=== PATIENT | male | born 1960 | race Caucasian/White ===

== ENCOUNTER → 2017-07-05 14:32 | Outpatient (CLI) | payer OTHER, SELFPAY | PROVIDERS: PCP Internal Medicine; Visit Provider Internal Medicine | DX: J11.1 Influenza due to unidentified influenza virus with other respiratory manifestations (principal) | CPT/HCPCS: 87275; 87276 ==

== ENCOUNTER → 2017-07-26 13:04 | Outpatient (CLI) | payer OTHER, SELFPAY ==
--- NOTE | 2017-07-26 13:13 | FL_ITS ---
FL cystogram non-voiding CLINICAL INDICATION: Evaluate for bladder leak following surgery ITS.REASON: F/U SURGERY ORDERING PHYSICIAN: Tevin Tapia MD PATIENT AGE: 56 years COMPARISON: None FINDINGS: Cystografin was instilled into the urinary bladder. Approximately 125 mL was dripped in. The patient reported severe discomfort therefore no further contrast was instilled. Multiple images are obtained showing a contracted appearing urinary bladder with minimal lobularity of the contour along the left superior aspect and could represent an early diverticulum. No filling defects are evident. No evidence of contrast extravasation. Post void exam is unremarkable. IMPRESSION: 1. No evidence of urinary bladder leak. 2. Contracted appearing urinary bladder
== END ==
PROVIDERS: Family Provider Internal Medicine; PCP Internal Medicine; Visit Provider Urology
DX: Z98.890 Other specified postprocedural states (principal)
CPT/HCPCS: 74430; Q9966

== ENCOUNTER → 2017-08-16 16:00 | Outpatient (CLI) | payer OTHER, SELFPAY ==
[2017-08-16 19:27] LABS: Prostate Specific Ag, Diagnost 0 ng/mL (0.0-4.0)
== END ==
PROVIDERS: Visit Provider Urology
DX: C61 Malignant neoplasm of prostate (principal)
CPT/HCPCS: 36415; 84153

== ENCOUNTER → 2017-10-18 15:55 | Outpatient (CLI) | payer OTHER, SELFPAY ==
[2017-10-18 20:30] LABS: Prostate Specific Ag, Diagnost 0 ng/mL (0.0-4.0)
== END ==
PROVIDERS: Visit Provider Urology
DX: C61 Malignant neoplasm of prostate (principal)
CPT/HCPCS: 36415; 84153

== ENCOUNTER → 2018-01-17 16:57 | Outpatient (CLI) | payer OTHER, SELFPAY | PROVIDERS: Visit Provider Urology | DX: C61 Malignant neoplasm of prostate (principal) ==

== ENCOUNTER → 2018-03-14 15:33 | Outpatient (POV) | payer OTHER, SELFPAY | PROVIDERS: Family Provider Internal Medicine; PCP Internal Medicine; Visit Provider Dermatology | DX: Z00.00 Encounter for general adult medical examination without abnormal findings (principal) ==

== ENCOUNTER → 2018-09-05 15:44 | Outpatient (CLI) | payer OTHER, SELFPAY ==
[2018-09-05 19:32] LABS: Prostate Specific Ag, Diagnost 0 ng/mL (0.0-4.0)
== END ==
PROVIDERS: Visit Provider Urology
DX: C61 Malignant neoplasm of prostate (principal)
CPT/HCPCS: 36415; 84153

== ENCOUNTER → 2018-11-13 10:03 | Outpatient (CLI) | payer OTHER, SELFPAY ==
[2018-11-13 10:28] LABS: Troponin I < 0.02 ng/ml (0.00-0.06)
== END ==
PROVIDERS: Visit Provider Internal Medicine
DX: R06.02 Shortness of breath (principal); J44.9 Chronic obstructive pulmonary disease, unspecified
CPT/HCPCS: 36415; 84484; 93005

== ENCOUNTER → 2018-12-05 15:39 | Outpatient (CLI) | payer OTHER, SELFPAY ==
[2018-12-07 18:21] LABS: PSA, Free 0.02 ng/mL; Prostate Specific Ag <0.1 ng/mL (0.0-4.0)
== END ==
PROVIDERS: Visit Provider Urology
DX: C61 Malignant neoplasm of prostate (principal)
CPT/HCPCS: 36415; 84153; 84154

== ENCOUNTER → 2019-06-04 16:07 | Outpatient (CLI) | payer OTHER, SELFPAY ==
[2019-06-04 19:44] LABS: Prostate Specific Ag, Diagnost 0 ng/mL (0.0-4.0)
== END ==
PROVIDERS: Visit Provider Urology
DX: C61 Malignant neoplasm of prostate (principal)
CPT/HCPCS: 36415; 84153

== ENCOUNTER → 2019-11-20 15:31 | Outpatient (CLI) | payer BC, SELFPAY ==
[2019-11-20 15:45] LABS: Basophils # 0.1 K/mm3 (0-0.2); Basophils % 0.8 % (0.1-2.0); Eosinophils # 0.2 K/mm3 (0.0-0.4); Hematocrit 46.3 % (42.0-52.0); Hemoglobin 15.9 g/dL (14.1-18.0); Lymphocytes # 2.5 K/mm3 (0.7-4.5); Lymphocytes % 30.7 % (10-50); Mean Corpuscular HGB Conc 34.3 g/dL (31.8-35.4); Mean Corpuscular Hemoglobin 32.1 pg (27.0-31.2); Mean Corpuscular Volume 93.8 fl (80-94); Mean Platelet Volume 6.9 fl (7.4-10.4); Monocytes # 0.5 K/mm3 (0.1-1.0); Monocytes % 5.6 % (1.7-9.3); Neutrophils # 4.9 K/mm3 (1.8-7.8); Neutrophils % 59.9 % (37.0-80.0); Platelet Count 309 K/mm3 (142-424); Red Blood Count 4.94 M/mm3 (4.60-6.20); Red Cell Distribution Width 13.3 % (11.5-17.5); White Blood Count 8.1 K/mm3 (4.8-10.8)
[2019-11-20 15:50] LABS: Chloride 101 mmol/L (98-107); Potassium 4.3 mmoL/L (3.5-5.1); Sodium 138 mmol/L (136-145)
[2019-11-20 15:53] LABS: Anion Gap 10.3 mEq/L (5-15); Blood Urea Nitrogen 18 mg/dl (9-20); Carbon Dioxide 31 mmol/L (22.0-30.0); Estimated Glomerular Filt Rate 99 ml/min (>60); GFR (African American) 120 ML/MIN (>60); Glucose 110 mg/dl (74-100)
== END ==
PROVIDERS: Visit Provider Internal Medicine
DX: R42 Dizziness and giddiness; K52.9 Noninfective gastroenteritis and colitis, unspecified
CPT/HCPCS: 36415; 80048; 85025

== ENCOUNTER → 2020-05-27 16:18 | Outpatient (CLI) | payer BC, SELFPAY ==
[2020-05-27 18:38] LABS: Prostate Specific Ag, Diagnost < 0.064 ng/ml (0.0-4.0)
== END ==
PROVIDERS: Visit Provider Urology
DX: C61 Malignant neoplasm of prostate (principal)
CPT/HCPCS: 36415; 84153

== ENCOUNTER → 2020-06-09 12:14 | Outpatient (CLI) | payer BC, SELFPAY ==
[2020-06-09 14:47] LABS: Coronavirus 19 IgG Antibody Negative (Negative); Coronavirus 19 IgM Antibody Negative (Negative)
== END ==
PROVIDERS: PCP Internal Medicine; Visit Provider Internal Medicine
DX: Z11.52 Encounter for screening for COVID-19 (principal); R50.9 Fever, unspecified; R52 Pain, unspecified
CPT/HCPCS: 86328

== ENCOUNTER → 2020-06-10 15:19 | Outpatient (CLI) | payer BC, SELFPAY ==
[2020-06-12 11:42] LABS: Covid-19 Nasal PCR Sendout P&C POSITIVE
== END ==
PROVIDERS: PCP Internal Medicine; Visit Provider Internal Medicine
DX: Z20.822 Contact with and (suspected) exposure to COVID-19 (principal); U07.1 COVID-19; R50.9 Fever, unspecified
CPT/HCPCS: U0004

== ENCOUNTER → 2020-06-23 14:27 | Outpatient (CLI) | payer BC, SELFPAY ==
--- NOTE | 2020-06-23 14:39 | XR_ITS ---
PROCEDURE: XR CHEST 2V CLINICAL HISTORY: COUGH,WHEEZING,THORACIC CHEST PAIN COMPARISON: CR CXR CHEST(2 VIEWS-NOT PORTABLE) from 10/15/2014 FINDINGS: The cardiomediastinal silhouette and pulmonary vascularity are within normal limits. COPD. Patchy density right infrahilar region which could be related to faint area of infiltrate. There is chronic blunting of the right CP angle. Left lung is clear. IMPRESSION: Possible right infrahilar infiltrate with chronic changes Dictated by: Kevin Moss MD 06/23/2020 16:16 Kevin Moss MD in [place] 06/23/2020 16:16
== END ==
PROVIDERS: PCP Internal Medicine; Visit Provider Internal Medicine
DX: R05 Cough (principal); R06.2 Wheezing; R07.89 Other chest pain
CPT/HCPCS: 71046

== ENCOUNTER → 2021-04-14 15:58 | Outpatient (CLI) | payer BC, SELFPAY ==
--- NOTE | 2021-04-14 16:02 | XR_ITS ---
PROCEDURE INFORMATION: Exam: XR Chest Exam date and time: 04/14/2021 4:02 PM Age: 60 years old Clinical indication: Cough; Additional info: Cough, sputum, SOA, copd TECHNIQUE: Imaging protocol: XR of the chest. Views: 2 views. COMPARISON: CR XR CHEST 2V 06/23/2020 2:50 PM FINDINGS: Lungs: Small right basilar opacity is noted. Question some nodularity and possible nodular correlate seen over the heart on the lateral. It measures about 10 mm. Given this, CT is recommended to exclude malignancy. Pleural spaces: Unremarkable. No pleural effusion. No pneumothorax. Heart/Mediastinum: Unremarkable. No cardiomegaly. Bones/joints: Unremarkable. IMPRESSION: Recommend CT for further evaluation of a right basilar opacity.
== END ==
PROVIDERS: PCP Internal Medicine; Visit Provider Internal Medicine
DX: R06.02 Shortness of breath (principal); R09.89 Other specified symptoms and signs involving the circulatory and respiratory systems; R05.9 Cough, unspecified; J44.9 Chronic obstructive pulmonary disease, unspecified
CPT/HCPCS: 71046

== ENCOUNTER → 2021-04-24 07:26 | Outpatient (CLI) | payer BC, SELFPAY ==
--- NOTE | 2021-04-24 07:32 | CT_ITS ---
PROCEDURE: CT CHEST WO CON CLINICAL INDICATION: LUNG NODULE COMPARISON: CR XR CHEST 2V from 04/14/2021 TECHNIQUE: Axial images obtained with sagittal and coronal reformats. All CT scans at the facility use one or more dose reduction, viz: automated exposure control, ma/kV adjustment per patient size (including targeted exams where dose is matched to indication, i.e. head), or iterative reconstruction technique. FINDINGS: HEART AND MEDIASTINAL STRUCTURES: Unremarkable. LUNGS AND PLEURAL SPACES: Centrilobular and paraseptal emphysematous changes. There is pleural thickening in right lung base anteriorly laterally and posterior laterally. This is nonspecific. No pleural effusions. There is mild nodularity of the pleural thickening along the right middle lobe anterior laterally. No suspicious parenchymal pulmonary nodules apparent. BONY STRUCTURES: No acute bony abnormalities apparent. UPPER ABDOMEN: Gallstones noted within a contracted gallbladder. There is heterogeneous density of the liver with decreased attenuation consistent with fatty liver ADDITIONAL FINDINGS: No other significant abnormalities. IMPRESSION: Pleural thickening in the right lung base as described above with nodular component anteriorly. This is nonspecific and could be due to prior infection or trauma. Neoplastic process not entirely excluded. Suggest 3 month follow-up to confirm short term stability. Alternatively, PET-CT may provide further evaluation. COPD with centrilobular and paraseptal emphysematous changes Cholelithiasis with fatty liver Dictated by: Kevin Moss MD 04/25/2021 07:43 Kevin Moss MD in [place] 04/25/2021 07:43
== END ==
PROVIDERS: PCP Internal Medicine; Visit Provider Internal Medicine
DX: R91.1 Solitary pulmonary nodule (principal)
CPT/HCPCS: 71250

== ENCOUNTER → 2021-05-01 06:30 | Outpatient (CLI) | payer BC, SELFPAY ==
--- NOTE | 2021-05-01 06:31 | NM_ITS ---
APPROVED REPORT Exam: Nuclear Stress Test Indication: chest pain..short of breath..fatigue Patient Location: Outpatient Stress Tech: Laura HOLLINS Tech:Radha Ying ALEJAJenn RT(R)(N) Ht: 6 ft 0 in Wt: 203 lbs HR: 68 bpm BP: 104/79 mmHg BSA: 2.14 m2 History: chest pain..short of breath..fatigue Procedure: Patient received a 0.4 mg of intravenous Lexiscan, resting heart rate 68 bpm, resting blood pressure 104/79 mmHg, with Lexiscan maximum heart rate achived was 80 bpm which is Less than 85 % of the maximum predicted heart rate and blood pressure was 126/87 mmHg. With Lexiscan, patient denied any complaint of chest pain. Electrocardiogram Resting electrocardiogram showed sinus rhythm, with Lexiscan there is less than 1.[address] segment depression noted from the baseline EKG. The EKG portion of the Lexiscan is nondiagnostic. Cardiac Stress and Resting SPECT Images: Cardiac Stress and Resting SPECT images were obtained using technetium 99m Myoview 30.9 mCi stress and 10.53 mCi at rest. Gated SPECT for analysis of segmental wall motion and calculation of the ejection fraction also done. Prone images were also obtained. Cardiac stress and resting SPECT images show uniform myocardial activity without segmental perfusion abnormality, computer derived ejection fraction is 63% with no regional wall motion abnormality, right ventricle is normal size and contractility. Conclusion: 1. The EKG portion of the Lexiscan is nondiagnostic. 2. No scintigraphic evidence of reversible ischemia seen, computer derived ejection fraction 63% with no regional wall motion abnormality, right ventricle is normal size and contractility. 3. Normal Lexiscan Myoview study. Electronically signed by : Marek Dorsey MD 05/01/2021 15:32:33
--- NOTE | 2021-05-01 06:31 | CA_ITS ---
APPROVED REPORT Exam: Pharmacologic Technologist: Laura Zuñiga, Ht: 6 ft 0 in Wt: 206 lbs BSA: 2.16 m2 HR: 68 bpm BP: 104/79 mmHg Medical History Medical History: HTN Medications: Lisinopril,,,,, Trazadone,,,,, Ventolin,,,,, ANoro,,,,, Cardiac Risk Factors: HTN Stress Test Details Test: LEXISCAN HR Resting HR: 72 bpm Max Heart Rate (APMHR): 159.706403 bpm Max HR Achieved: 87 bpm Target HR (85% APMHR): 135.017748 bpm % of APMHR: 54.72 Recovery HR: 80 bpm BP Resting BP: 104/79 mmHg Max BP: 131/77 mmHg Recovery BP: 126.0/87.0 mmHg ECG Clinical Exercise duration: 04:00 min Highest Stage Achieved: Exercise capacity: 1.0 METs Stress ECG Conclusion During lexiscan pt experinced SOA and nausea with lexiscan. No CP noted. PAC noted. <1.5mm ST segment changes. Test Summary REST . . . . . . . Sitting REST 07:49 . . 72 . 104/ 79 . . Stage 1 01:00 . . 81 . . . . Stage 2 01:00 . . 87 . 131/ 77 . . Stage 3 01:00 . . 82 . 122/ 78 . . Stage 4 01:00 . . 82 . 123/ 80 . Stop exercise at 04:00 RECOVERY 01:00 . . 83 . . . . RECOVERY 02:00 . . 78 . 126/ 87 . . RECOVERY 03:00 . . 81 . 127/ 84 . . RECOVERY 03:38 . . 82 . 112/ 85 . . Electronically signed by : Marek Dorsey MD 05/01/2021 15:22:32
--- NOTE | 2021-05-01 06:31 | CA_ITS ---
APPROVED REPORT EXAM: Comprehensive 2D, Doppler, and color-flow Echocardiogram Lead Welder: Angela Richardson RVT Ht: 6 ft 0 in Wt: 206lbs BSA: 2.16 BP: 148/96 mmHg Indications: SOA,COPD,EX SMOKER,ABN EKG TDS 2D Dimensions LVOT 2.17 cm (M/F) 1.5-2.5 LA Volume 23.80 mL LA Volume Index 11.06 mL/m2 (M/F) 16-34 M-Mode Dimensions RVDd 2.73 cm (0.9-2.6) LA Diam 4.35 cm (1.9-4.0) LVDd 4.43 cm (3.5-5.7) Ao Diam 3.61 cm (2.0-3.7) LVDs 3.09 cm (3.5-5.7) IVSd 0.72 cm (0.6-1.1) PWd 0.72 cm (0.6-1.1) EF (Teich) 57.80% FS 30.20% EDV (Teich) 89.10 mL ESV (Teich) 37.60 mL LV Diastology E Decel Time 227.00 (160-240 msec) E/A Ratio 0.8 MED E' 5.40 (< 7 cm/sec) E'/MED E' Ratio 11.91 (>14) LAT E' 9.20 (<10 cm/sec) E/LAT E' Ratio 6.99 (>14) Mitral Valve MV E Max Hamilton. 64.00 (40-130 cm/s) MV A Velocity 80.00 (40-130 cm/s) E/A Ratio 0.80 MV Decel. Time 227.00 (160-240 ms) MV PHT 66.00 ms Pulmonary Valve PV Peak Velocity 101.00 (50-150 cm/s) Left Ventricle Left atrium is mildly enlarged, left ventricle is normal size, mild concentric left ventricular hypertrophy, visually estimated ejection fraction 55% with no regional wall motion abnormality, grade 1 diastolic dysfunction seen without tissue Doppler evidence of raise left atrial pressure. Right Ventricle Right atrium and right ventricle mildly enlarged with normal contractility. Aortic Valve Aortic valve is minimally thickened and fibrosed, there is no aortic stenosis or aortic insufficiency. Mitral Valve Mitral valve grossly normal, there is trace mitral regurgitation. Tricuspid Valve Tricuspid valve grossly normal, there is trace tricuspid regurgitation, tricuspid regurgitation jet velocity is inadequate for calculation of the right ventricular systolic pressure. Pulmonic Valve Pulmonic valve is poorly visualized. Great Vessels Aortic root is normal size. Inferior vena cava is mildly dilated without significant inspiratory collapse. Pericardium No significant pericardial effusion noted. Conclusion 1. Biatrial enlargement, normal left ventricular size, mild concentric left ventricular hypertrophy, visually estimated ejection fraction 55% with no regional wall motion abnormality, grade 1 diastolic dysfunction seen without tissue Doppler evidence of raise left atrial pressure. 2. Mildly enlarged right ventricle with normal contractility. 3. No significant pericardial effusion noted. 4. Inferior vena cava is mildly dilated without significant inspiratory collapse. Electronically signed by : Marek Dorsey MD 05/01/2021 15:58:05
== END ==
LOC: RAD 06:31
PROVIDERS: PCP Internal Medicine; Visit Provider Physician Assistant
DX: R06.00 Dyspnea, unspecified (principal); I20.8 Other forms of angina pectoris; R94.31 Abnormal electrocardiogram [ECG] [EKG]
CPT/HCPCS: 78452; 93017; 93306; A9502; J2785

== ENCOUNTER → 2021-05-20 07:45 | Outpatient (CLI) | payer BC, SELFPAY | PROVIDERS: PCP Internal Medicine; Visit Provider Urology | DX: G47.33 Obstructive sleep apnea (adult) (pediatric) (principal); R06.00 Dyspnea, unspecified; R06.83 Snoring; R40.0 Somnolence; R94.31 Abnormal electrocardiogram [ECG] [EKG] | CPT/HCPCS: G0399 ==

== ENCOUNTER → 2021-06-23 10:46 | Outpatient (CLI) | payer BC, SELFPAY ==
[2021-06-23 12:07] LABS: Prostate Specific Ag, Diagnost < 0.064 ng/ml (0.0-4.0)
== END ==
PROVIDERS: PCP Internal Medicine; Visit Provider Urology
DX: C61 Malignant neoplasm of prostate (principal)
CPT/HCPCS: 36415; 84153

== ENCOUNTER → 2022-04-07 06:08 | Outpatient (CLI) | payer BC, SELFPAY | PROVIDERS: PCP Internal Medicine; Visit Provider Internal Medicine | DX: I10 Essential (primary) hypertension (principal) ==

== ENCOUNTER → 2022-04-07 19:26 | Outpatient (CLI) | payer BC, SELFPAY ==
[2022-04-07 20:19] LABS: Basophils # 0.1 K/mm3 (0-0.2); Basophils % 1.6 % (0.1-2.0); Eosinophils # 0.3 K/mm3 (0.0-0.4); Eosinophils % 3.5 % (0.1-12.0); Hematocrit 52.2 % (42.0-52.0); Hemoglobin 16.6 g/dL (14.1-18.0); Lymphocytes # 2.2 K/mm3 (0.7-4.5); Lymphocytes % 29.7 % (10-50); Mean Corpuscular HGB Conc 31.7 g/dL (31.8-35.4); Mean Corpuscular Hemoglobin 31.1 pg (27.0-31.2); Mean Corpuscular Volume 98.1 fl (80-94); Mean Platelet Volume 8.1 fl (7.4-10.4); Monocytes # 0.4 K/mm3 (0.1-1.0); Monocytes % 5.5 % (1.7-9.3); Neutrophils # 4.3 K/mm3 (1.8-7.8); Neutrophils % 59.6 % (37.0-80.0); Platelet Count 383 K/mm3 (142-424); Red Blood Count 5.32 M/mm3 (4.60-6.20); White Blood Count 7.2 K/mm3 (4.8-10.8)
[2022-04-07 21:47] LABS: Chloride 99 mmol/L (98-107); Potassium 4.6 mmoL/L (3.5-5.1); Sodium 139 mmol/L (136-145)
[2022-04-07 21:49] LABS: Blood Urea Nitrogen 18 mg/dl (9-20); Estimated Glomerular Filt Rate 98 ml/min (>60); GFR (African American) 119 ML/MIN (>60)
[2022-04-07 21:50] LABS: Alanine Aminotransferase 28 U/L (12-78); Albumin Level 4.3 g/dl (3.5-5.0); Albumin/Globulin Ratio 1.7 (1.1-1.8); Alkaline Phosphatase 77 U/L (38-126); Anion Gap 14.6 mEq/L (5-15); Aspartate Amino Transferase 32 U/L (17-59); Bilirubin,Total 0.9 mg/dl (0.2-1.3); Calcium 9.5 mg/dl (8.4-10.2); Carbon Dioxide 30 mmol/L (22.0-30.0); Chol/HDL Ratio 3.9 (1-3.5); Cholesterol 179 mg/dl (140-200); Globulin 2.6 g/dL (1.3-3.2); Glucose 93 mg/dl (74-100); HDL Cholesterol 46 mg/dl (40-60); Total Protein,Serum 6.9 g/dl (6.3-8.2); Triglycerides 93 mg/dl (30-150); VLDL Cholesterol 19 mg/dL (0-40)
[2022-04-07 22:01] LABS: Direct LDL Cholesterol 97.93 mg/dL (100-129)
[2022-04-07 23:01] LABS: Prostate Specific Ag Screen < 0.1 ng/ml (0.0-4.0)
== END ==
LOC: LAB.DROPOF 19:27
PROVIDERS: PCP Internal Medicine; Visit Provider Internal Medicine
DX: I10 Essential (primary) hypertension (principal); E78.5 Hyperlipidemia, unspecified; J44.9 Chronic obstructive pulmonary disease, unspecified; N40.1 Benign prostatic hyperplasia with lower urinary tract symptoms; Z85.46 Personal history of malignant neoplasm of prostate
CPT/HCPCS: 80053; 80061; 85025; G0103

== ENCOUNTER → 2022-04-21 07:21 | Outpatient (CLI) | payer BC, SELFPAY ==
--- NOTE | 2022-04-21 07:26 | CT_ITS ---
FINAL REPORT TECHNIQUE: Axial CT images were performed from the lung apices through the upper abdomen. Coronal reformats were submitted. This study was performed with techniques to keep radiation doses as low as reasonably achievable (ALARA). Individualized dose reduction techniques using automated exposure control or adjustment of mA and/or kV according to the patient's size were employed. CLINICAL HISTORY: COPD, right pleural thickening, follow-up COMPARISON: 04/24/2021 FINDINGS: There is no axillary adenopathy. There is no hilar or mediastinal mass or adenopathy. Heart size is normal. There is no pericardial or pleural effusion. Limited images of the upper abdomen demonstrate multiple stones in the gallbladder. There is persistent pleural based soft tissue anterolaterally in the right lower thorax. This is stable and favored to represent scarring. There is no new mass or nodule. IMPRESSION: Persistent but stable pleural based soft tissue in the right lower thorax favored to represent scarring. Reviewed, Interpreted and Dictated by Denys Harris III, MD Transcribed by Brittney Sr Authenticated and [facility]
== END ==
LOC: RAD 07:21
PROVIDERS: PCP Internal Medicine; Visit Provider Internal Medicine
DX: J44.9 Chronic obstructive pulmonary disease, unspecified (principal); R91.1 Solitary pulmonary nodule
CPT/HCPCS: 71250

== ENCOUNTER → 2023-03-30 16:15 | Outpatient (CLI) | payer BC, SELFPAY ==
[2023-03-30 16:50] LABS: Basophils # 0.1 K/mm3 (0-0.2); Basophils % 0.8 % (0.1-2.0); Eosinophils # 0.2 K/mm3 (0.0-0.4); Eosinophils % 1.8 % (0.1-12.0); Hematocrit 48.5 % (42.0-52.0); Hemoglobin 16.5 g/dL (14.1-18.0); Lymphocytes # 2.6 K/mm3 (0.7-4.5); Lymphocytes % 27.3 % (10-50); Mean Corpuscular HGB Conc 33.9 g/dL (31.8-35.4); Mean Corpuscular Hemoglobin 32.5 pg (27.0-31.2); Mean Corpuscular Volume 95.9 fl (80-94); Monocytes # 0.5 K/mm3 (0.1-1.0); Monocytes % 4.8 % (1.7-9.3); Neutrophils # 6.2 K/mm3 (1.8-7.8); Neutrophils % 65.3 % (37.0-80.0); Platelet Count 322 K/mm3 (142-424); Red Blood Count 5.06 M/mm3 (4.60-6.20); Red Cell Distribution Width 12.8 % (11.5-17.5); White Blood Count 9.5 K/mm3 (4.8-10.8)
[2023-03-30 17:31] LABS: Alanine Aminotransferase 31 U/L (12-78); Albumin Level 4.4 g/dl (3.5-5.0); Albumin/Globulin Ratio 1.4 (1.1-1.8); Alkaline Phosphatase 69 U/L (38-126); Anion Gap 12.3 mEq/L (5-15); Aspartate Amino Transferase 30 U/L (17-59); Bilirubin,Total 0.2 mg/dl (0.2-1.3); Blood Urea Nitrogen 14 mg/dl (9-20); Carbon Dioxide 31 mmol/L (22.0-30.0); Chloride 99 mmol/L (98-107); Estimated Glomerular Filt Rate 98 ml/min (>60); GFR (African American) 118 ML/MIN (>60); Globulin 3.1 g/dL (1.3-3.2); Glucose 83 mg/dl (74-100); Magnesium 2.1 mg/dl (1.6-2.3); Potassium 4.3 mmoL/L (3.5-5.1); Sodium 138 mmol/L (136-145); Total Protein,Serum 7.5 g/dl (6.3-8.2)
[2023-03-30 18:01] LABS: Prostate Specific Ag, Diagnost < 0.064 ng/ml (0.0-4.0)
[2023-03-30 18:18] LABS: Vitamin B12 650 pg/mL (239-931)
[2023-04-01 17:59] LABS: Chol/HDL Ratio 3.8 (1-3.5); Cholesterol 203 mg/dl (140-200); HDL Cholesterol 54 mg/dl (40-60); Triglycerides 131 mg/dl (30-150); VLDL Cholesterol 26 mg/dL (0-40)
[2023-04-01 18:10] LABS: Direct LDL Cholesterol 120.48 mg/dL (100-129)
== END ==
LOC: LAB 16:18
PROVIDERS: PCP Internal Medicine; Visit Provider Internal Medicine
DX: I10 Essential (primary) hypertension (principal); E78.5 Hyperlipidemia, unspecified; J44.9 Chronic obstructive pulmonary disease, unspecified; R25.2 Cramp and spasm; Z85.46 Personal history of malignant neoplasm of prostate; Z87.891 Personal history of nicotine dependence
CPT/HCPCS: 36415; 80053; 80061; 82607; 83735; 84153; 85025

== ENCOUNTER 2023-07-11 16:01 | Outpatient (CLI) | payer BC, SELFPAY | END 2023-07-11 23:59 | PROVIDERS: PCP Internal Medicine; Visit Provider Physician Assistant | DX: I20.89 Other forms of angina pectoris (principal); R06.09 Other forms of dyspnea; I10 Essential (primary) hypertension; R94.31 Abnormal electrocardiogram [ECG] [EKG] | CPT/HCPCS: 93225 ==

== ENCOUNTER 2023-07-26 06:05 | Outpatient (CLI) | payer BC, SELFPAY ==
--- NOTE | 2023-07-26 | CA_ITS ---
APPROVED REPORT Exam: Pharmacologic Technologist: Laura Zuñiga, Ht: 6 ft 0 in Wt: 216 lbs BSA: 2.20 m2 HR: 67 bpm BP: 136/91 mmHg Rhythm: sinus rhythm Medical History Medications: Lisinopril,,,,, Trazadone,,,,, Atorvastatin,,,,, Ventolin,,,,, Cardiac Risk Factors: HTN, Hyperlipidemia, Smoking Stress Test Details Test: LEXISCAN HR Resting HR: 68 bpm Max Heart Rate (APMHR): 157 bpm Max HR Achieved: 83 bpm Target HR (85% APMHR): 133 bpm % of APMHR: 53 Recovery HR: 77 bpm BP Resting BP: 136/91 mmHg Max BP: 156/90 mmHg Recovery BP: 122.0/98.0 mmHg ECG Resting ECG: sinus rhythm Stress ECG: No significant ST changes Arrhythmia: None Clinical Exercise duration: 04:10 min Highest Stage Achieved: Exercise capacity: 1.0 METs Stress ECG Conclusion During lexiscan pt experinced SOA and chest tightness. No arrhythmias noted. ST changes: None Conclusion: EKG portion unremarkable due to lexiscan infusion. Myoview images are reported separately. Test Summary REST . . . . . . . Sitting REST 05:50 . . 68 . 136/ 91 . . Stage 1 . . . . . . . Myoview Injected Stage 1 01:00 . . 74 . . . . Stage 2 01:00 . . 81 . . . . Stage 3 01:00 . . 79 . 119/ 85 . . Stage 4 01:00 . . 76 . . . . Stage 4 01:10 . . 76 . . . Stop exercise at 04:10 RECOVERY 01:00 . . 76 . 156/ 90 . . RECOVERY 02:00 . . 74 . 156/ 90 . . RECOVERY 03:00 . . 74 . 144/ 87 . . Electronically signed by : Aileen Medeiros MD 07/26/2023 12:49:38
--- NOTE | 2023-07-26 06:16 | NM_ITS ---
APPROVED REPORT Exam: Nuclear Stress Test Indication: Chest pain, SOB, HTN, High cholesterol, Family history Patient Location: Outpatient Stress Tech: Laura HOLLINS Tech:Margo Chavarria, ARRT, RT (R)(N) Ht: 6 ft 0 in Wt: 210 lbs HR: 68 bpm BP: 136/91 mmHg BSA: 2.18 m2 Rhythm: NSR TID: 1.27 History: Chest pain, SOB, HTN, High cholesterol, Family history Procedure: Patient received 0.4 mg of intravenous Lexiscan, resting heart rate 68 bpm, resting blood pressure 136/91 mmHg, with Lexiscan maximum heart rate achieved was 83 bpm which is % of the maximum predicted heart rate and blood pressure was 156/90 mmHg. With Lexiscan, patient denied any complaint of chest pain. Cardiac Stress and Resting SPECT Images: Cardiac Stress and Resting SPECT images were obtained using technetium 99m Myoview 31.6 mCi stress and 10.50 mCi at rest. Resting and stress imaging in supine and prone positions demonstrate a medium sized, moderate fixed perfusion defect in the basal to mid inferior LV wall. This is no longer visualized with prone stress imaging. Findings are suggestive of diaphragmatic attenuation. There is increased transient ischemic dilatation ratio (TID 1.27), suggestive of possible multivessel disease or balanced ischemia. Gated imaging demonstrates normal global and regional LV systolic function. LVEF is calculated at 58%. Conclusion: Diaphragmatic attenuation is present. Increased transient ischemic dilatation ratio (TID 1.27), suggestive of possible multivessel disease or balanced ischemia. Gated imaging demonstrates normal global and regional LV systolic function. LVEF is calculated at 58%. Electronically signed by : Aileen Medeiros MD 07/26/2023 12:51:09
--- NOTE | 2023-07-26 08:16 | CA_ITS ---
APPROVED REPORT EXAM: Comprehensive 2D, Doppler, and color-flow Echocardiogram E Business Consultant: Adrianna Poe CRT Ht: 6 ft 0 in Wt: 216lbs BSA: 2.20 BP: 159/102 mmHg Indications: Abnormal ECG, COPD, Shortness of Breath, Peripheral Edema, Hypertension/HDD 2D Dimensions LA Volume 29.50 mL LA Volume Index 13.10 mL/m2 (M/F) 16-34 M-Mode Dimensions RVDd 2.58 cm (0.9-2.6) LA Diam 3.00 cm (1.9-4.0) LVDd 4.32 cm (3.5-5.7) LVDs 2.86 cm (3.5-5.7) IVSd 1.41 cm (0.6-1.1) PWd 0.85 cm (0.6-1.1) EF (Teich) 63.00% FS 33.80% EDV (Teich) 84.00 mL TAPSE 2.06 (<1.7) ESV (Teich) 31.10 mL LV Diastology E Decel Time 127 (160-240 msec) E/A Ratio 0.84 MED A' 8.50 cm/s LAT A' 11.80 cm/s Aortic Valve AO Peak GR. 5.60 mmHg Mitral Valve MV A Velocity 56.0 (40-130 cm/s) E/A Ratio 0.84 Pulmonary Valve PV Peak Velocity 94.0 (50-150 cm/s) Tricuspid Valve TR P. Velocity 134.00 cm/s RAP Estimate 10.00 mmHg RVSP 17.20 mmHg Left Ventricle The left ventricle is normal size. The left ventricular systolic function is normal. The left ventricular ejection fraction is within the normal range. There is increased LV wall thickness. There is normal LV segmental wall motion. The left ventricular diastolic function is normal. LVEF is 60%. Right Ventricle The right ventricle is normal size. The right ventricular systolic function is normal. Atria The left atrium size is normal. The right atrium size is normal. The interatrial septum is not well-visualized. Aortic Valve The aortic valve is mildly thickened. There is no aortic valvular stenosis. No aortic regurgitation is present. Mitral Valve The mitral valve is normal in structure. No evidence of mitral valve stenosis. There is no mitral valve regurgitation noted. Tricuspid Valve The tricuspid valve leaflets are thin and pliable. Trace tricuspid regurgitation. There is insufficient TR jet to estimate RVSP. Pulmonic Valve The pulmonary valve is normal in structure. Trace pulmonic regurgitation. Great Vessels The aortic root is normal in size. The ascending aorta is mildly dilated, measuring 3.9 cm in diameter. The IVC is not well-visualized. Pericardium There is no pericardial effusion. Other Information Study Quality: Technically Difficult Conclusion Technically difficult study due to poor acoustic windows. Normal biventricular systolic function. No significant valvular stenosis or regurgitation. Ascending aorta is mildly dilated, measuring 3.9 cm in diameter. Electronically signed by : Aileen Medeiros MD 07/28/2023 10:47:44
[2023-07-26] MEDS: REGADENOSON 0.4MG/5ML SYRINGE 0.400000000000000022 MG IV (08:23)
[2023-07-26] MEDS: ISOTOPE MYOVIEW (PER STUDY) 1 DOSE IV (08:23)
[2023-07-26] MEDS: SODIUM CHLORIDE 0.9% 10ML SYR (RAD ONLY) 10 ML IV ×2 (08:23)
== END 2023-07-26 23:59 ==
LOC: RAD 06:05
PROVIDERS: PCP Internal Medicine; Visit Provider Physician Assistant
DX: I10 Essential (primary) hypertension (principal); R06.00 Dyspnea, unspecified; R94.31 Abnormal electrocardiogram [ECG] [EKG]; Z87.891 Personal history of nicotine dependence; I20.9 Angina pectoris, unspecified
CPT/HCPCS: 78452; 93017; 93018; 93306; A9502; J2785

== ENCOUNTER 2023-08-19 08:03 | Day surgery (SDC) | payer BC, SELFPAY ==
[2023-08-19] VITALS (15 sets, daily range): BP systolic 82–133; BP diastolic 51–93; PULSE 58–72; RESP 16–18; TEMP 36.2; O2SAT 94–100; BMI 29.4
--- NOTE | 2023-08-19 07:03 | IR_ITS ---
APPROVED REPORT Patient Location: Outpatient PROCEDURES Left heart catheterization Left ventriculogram Selective coronary angiogram INDICATION Abnormal Myoview, Angina pectoris Informed consent was obtained prior to the procedure. COMPLICATIONS NONE Estimated Blood Loss: LESS THAN 10 ML TECHNIQUE One percent lidocaine used to anesthetize the right anterior aspect of the wrist. The right radial artery was accessed via the Seldinger technique. A 6 English sheath was placed in the right radial artery. 2.5 mg of Verapamil, 800 mcg of nitroglycerin, 1mg Lidocaine and 5000 U Heparin were given through the arterial sheath. The papa catheter was also used to perform left heart catheterization, left ventriculogram and selective coronary angiogram. At the end of the procedure the sheath was removed good hemostasis was achieved using Traclet band, patient was transferred to the postop holding area in stable condition. ANGIOGRAPHIC RESULTS The left main artery Normal The left anterior descending artery Proximal 10% stenosis with mid vessel diffuse 30% stenosis The circumflex artery Nondominant with 10% luminal irregularities The right coronary artery Dominant with mid vessel 20% stenosis distal 20 to 30% stenosis and a distal concentric 40% stenosis immediately proximal to the PDA and posterolateral branch The ZHANG ventriculogram reveals Normal 65% The left ventricular end-diastolic pressure 15 mmHg IMPRESSION Mild to moderate coronary disease as described above Normal ejection fraction Normal left ventricular end-diastolic pressure PLAN 1. Anjelica of risk factor modification Electronically signed by : Arash Wei MD 08/19/2023 13:36:53
[2023-08-19 08:47] LABS: Basophils # 0.2 K/mm3 (0-0.2); Basophils % 1.5 % (0.1-2.0); Eosinophils # 0.2 K/mm3 (0.0-0.4); Eosinophils % 2.1 % (0.1-12.0); Hematocrit 54.2 % (42.0-52.0); Hemoglobin 16.8 g/dL (14.1-18.0); Lymphocytes # 2.9 K/mm3 (0.7-4.5); Lymphocytes % 28.5 % (10-50); Mean Corpuscular HGB Conc 31.1 g/dL (31.8-35.4); Mean Corpuscular Hemoglobin 31.6 pg (27.0-31.2); Mean Corpuscular Volume 101.7 fl (80-94); Mean Platelet Volume 7.7 fl (7.4-10.4); Monocytes # 0.6 K/mm3 (0.1-1.0); Monocytes % 5.5 % (1.7-9.3); Neutrophils # 6.4 K/mm3 (1.8-7.8); Neutrophils % 62.4 % (37.0-80.0); Platelet Count 332 K/mm3 (142-424); Red Blood Count 5.33 M/mm3 (4.60-6.20); Red Cell Distribution Width 13.1 % (11.5-17.5); White Blood Count 10.3 K/mm3 (4.8-10.8)
[2023-08-19 08:54] LABS: Chloride 101 mmol/L (98-107); Sodium 141 mmol/L (136-145)
[2023-08-19 08:57] LABS: Blood Urea Nitrogen 25 mg/dl (9-20); Calcium 9.1 mg/dl (8.4-10.2); Carbon Dioxide 35 mmol/L (22.0-30.0); Creatinine Clearance Estimated 105 mL/min (50-200); Estimated Glomerular Filt Rate 75 ml/min (>60); GFR (African American) 91 ML/MIN (>60); Glucose 137 mg/dl (74-100)
[2023-08-19] MEDS: HEPARIN 1,000 UNITS/ML 10ML VIAL (CATH LAB) 10000 UNIT IV (09:07)
[2023-08-19] MEDS: LIDOCAINE 1% 10ML MDV 20 ML IJ (09:07)
[2023-08-19] MEDS: HEPARIN 1,000 UNITS/500ML NS (CATH LAB) 3000 UNIT IV (09:07)
[2023-08-19] MEDS: diphenhydrAMINE 50MG/ML VIAL 50 MG IV (09:07)
[2023-08-19] MEDS: VERAPAMIL 2.5MG/ML 2ML VIAL 2.5 MG IV (09:07)
[2023-08-19] MEDS: 0.9 % SODIUM CHLORIDE 500 ML 25 ML IV (09:07)
[2023-08-19] MEDS: NITROGLYCERIN 800MCG/8ML SYR (CATH LAB) 800 MCG IA (09:08)
[2023-08-19] MEDS: FENTANYL 100MCG/2ML VIAL 50 MCG IV (09:36)
[2023-08-19] MEDS: MIDAZOLAM HCL 1MG/1ML 5ML VIAL 1 MG IV (09:37)
[2023-08-19] MEDS: IOPAMIDOL-370 (76%);100ML BOTTLE 60 ML IV (14:07)
== END 2023-08-19 13:21 | disposition home or self-care (01) ==
PROVIDERS: PCP Internal Medicine; Visit Provider Internal Medicine
DX: I25.118 Atherosclerotic heart disease of native coronary artery with other forms of angina pectoris (principal); Z87.891 Personal history of nicotine dependence; Z79.899 Other long term (current) drug therapy; R94.31 Abnormal electrocardiogram [ECG] [EKG]; I10 Essential (primary) hypertension
CPT/HCPCS: 80048; 85025; 93458; 99152; C1725; C1769; J1644; Q9967

== ENCOUNTER 2023-08-30 15:38 | Outpatient (CLI) | payer BC, SELFPAY | END 2023-08-30 23:59 | LOC: RT 15:39 | PROVIDERS: PCP Internal Medicine; Visit Provider Internal Medicine | DX: R55 Syncope and collapse (principal); I20.89 Other forms of angina pectoris; R00.2 Palpitations | CPT/HCPCS: 93270 ==

== ENCOUNTER 2024-08-15 07:29 | Outpatient (CLI) | payer OTHER, SELFPAY ==
--- NOTE | 2024-08-15 07:29 | CT_ITS ---
FINAL REPORT CLINICAL HISTORY: lung cancer screening former smoker quit 10 years ago 1.5ppd x45 years COMPARISON: 04/21/2022 FINDINGS: CT CHEST LOW DOSE SCREENING DOSE: CTDI vol: 2.90 mGy, DLP: 107.59 mGy*cm TECHNIQUE: Axial CT without IV contrast administration using low dose protocol. This study was performed with techniques to keep radiation doses as low as reasonably achievable, (ALARA). Individualized dose reduction techniques using automated exposure control or adjustment of mA and/or kV according to the patient's size were employed. No acute lung disease is present. No pulmonary lesions are seen suspicious for neoplasm. Subpleural scarring within the right middle lobe is stable. No pleural or pericardial effusion is seen. No adenopathy or mass lesion is present. IMPRESSION: No evidence of lung neoplasm. LUNG RADS CATEGORY 1 RECOMMENDATION: 12 month LDCT follow up Reviewed, Interpreted and Dictated by Melissa Benites MD Transcribed by Nay Carrion Authenticated and [facility]
[2024-08-15] MEDS: ALBUTEROL 0.083% 2.5 MG/3 ML NEB IH (08:32)
[2024-08-15 17:14] LABS: Basophils # 0.1 K/mm3 (0-0.2); Basophils % 0.9 % (0.1-2.0); Eosinophils # 0.2 K/mm3 (0.0-0.4); Eosinophils % 1.7 % (0.1-12.0); Hematocrit 50.2 % (42.0-52.0); Hemoglobin 16.4 g/dL (14.1-18.0); Lymphocytes # 2.7 K/mm3 (0.7-4.5); Lymphocytes % 30.4 % (10-50); Mean Corpuscular HGB Conc 32.7 g/dL (31.8-35.4); Mean Corpuscular Hemoglobin 30.9 pg (27.0-31.2); Mean Corpuscular Volume 94.5 fl (80-94); Mean Platelet Volume 8.8 fl (7.4-10.4); Monocytes # 0.7 K/mm3 (0.1-1.0); Monocytes % 8.4 % (1.7-9.3); Neutrophils # 5.2 K/mm3 (1.8-7.8); Neutrophils % 58.4 % (37.0-80.0); Platelet Count 296 K/mm3 (142-424); Red Blood Count 5.31 M/mm3 (4.60-6.20); Red Cell Distribution Width 13.1 % (11.5-17.5); White Blood Count 8.9 K/mm3 (4.8-10.8)
[2024-08-15 18:06] LABS: Alanine Aminotransferase 52 U/L (12-78); Albumin Level 4.6 g/dl (3.5-5.0); Albumin/Globulin Ratio 1.6 (1.1-1.8); Alkaline Phosphatase 67 U/L (38-126); Anion Gap 13.9 mEq/L (5-15); Aspartate Amino Transferase 37 U/L (17-59); Bilirubin,Total 0.5 mg/dl (0.2-1.3); Blood Urea Nitrogen 20 mg/dl (9-20); Carbon Dioxide 27 mmol/L (22.0-30.0); Chloride 99 mmol/L (98-107); Estimated Glomerular Filt Rate 97 ml/min (>60); GFR (African American) 118 ML/MIN (>60); Globulin 2.8 g/dL (1.3-3.2); Glucose 104 mg/dl (74-100); HDL Cholesterol 61 mg/dl (40-60); Potassium 4.9 mmoL/L (3.5-5.1); Sodium 135 mmol/L (136-145); Total Protein,Serum 7.4 g/dl (6.3-8.2)
[2024-08-15 18:18] LABS: Direct LDL Cholesterol 136.54 mg/dL (100-129)
[2024-08-15 18:40] LABS: Prostate Specific Ag, Diagnost < 0.064 ng/ml (0.0-4.0)
[2024-08-15 19:30] LABS: Chol/HDL Ratio 3.8 (1-3.5); Cholesterol 234 mg/dl (140-200); Triglycerides 120 mg/dl (30-150); VLDL Cholesterol 24 mg/dL (0-40)
== END 2024-08-15 23:59 | disposition home or self-care (01) ==
LOC: RAD 07:29
PROVIDERS: PCP Internal Medicine; Visit Provider Internal Medicine Pulmonary Disease
DX: R06.09 Other forms of dyspnea (principal); F17.210 Nicotine dependence, cigarettes, uncomplicated; I10 Essential (primary) hypertension; I25.10 Atherosclerotic heart disease of native coronary artery without angina pectoris; E78.5 Hyperlipidemia, unspecified; Z85.46 Personal history of malignant neoplasm of prostate
CPT/HCPCS: 71271; 80053; 80061; 84153; 85025; 94060; 94618; 94726; 94729; J7613

== ENCOUNTER 2025-03-19 08:16 | Outpatient (CLI) | payer OTHER, SELFPAY ==
[2025-03-19 13:26] LABS: Hematocrit 51.4 % (42.0-52.0); Hemoglobin 17.0 g/dL (14.1-18.0); Immature Granulocytes % 0.3 %; Mean Corpuscular HGB Conc 33.1 g/dL (31.8-35.4); Mean Corpuscular Hemoglobin 30.7 pg (27.0-31.2); Mean Corpuscular Volume 92.9 fl (80-94); Nucleated Red Blood Cells % 0 %; Platelet Count 323 K/mm3 (142-424); Red Blood Count 5.53 M/mm3 (4.60-6.20); Red Cell Distribution Width-SD 41.5 fL; White Blood Count 7.9 K/mm3 (4.8-10.8)
[2025-03-19 13:54] LABS: Alanine Aminotransferase 44 U/L (12-78); Albumin Level 4.2 g/dl (3.5-5.0); Albumin/Globulin Ratio 1.5 (1.1-1.8); Alkaline Phosphatase 109 U/L (38-126); Anion Gap 15.6 mEq/L (5-15); Aspartate Amino Transferase 33 U/L (17-59); Bilirubin,Total 1.0 mg/dl (0.2-1.3); Blood Urea Nitrogen 19 mg/dl (9-20); Calcium 9.3 mg/dl (8.4-10.2); Carbon Dioxide 30 mmol/L (22.0-30.0); Chloride 98 mmol/L (98-107); Cholesterol 166 mg/dl (140-200); Creatinine,Serum 1.00 mg/dl (0.66-1.25); Estimated Glomerular Filt Rate 75 ml/min (>60); GFR (African American) 91 ML/MIN (>60); Globulin 2.8 g/dL (1.3-3.2); Glucose 140 mg/dl (74-100); HDL Cholesterol 61 mg/dl (40-60); Potassium 5.6 mmoL/L (3.5-5.1); Sodium 138 mmol/L (136-145); Total Protein,Serum 7.0 g/dl (6.3-8.2); Triglycerides 111 mg/dl (30-150)
[2025-03-19 14:11] LABS: Troponin I < 0.01 ng/ml (0.00-0.034)
--- OUTSIDE RECORDS SUMMARY | 2025-03-21 08:26 | XMS_ITS | Clinical Summary ---
[facility] [address] [place] [address] Care Team Providers Care Social Welfare Research Worker Name Role Phone Octavio Dia MD Primary Care Provider [phone] Social History Tobacco Use Types Packs/Day Years Used Date Smoking Tobacco: Never Assessed Abuse Screen Answer Date Recorded Unsafe at Home or Work/School Not on file Feels Threatened by Someone? Not on file 03/2023 Does Anyone Keep You from Co ntacting Others or Doint Things Outside the Home? Not on file 03/09/2023 Physical Sign of Abuse Present Not on file 1 Housing Stability Answer Date Recorded Current Living Arrangements Not on file 02/27 Potentially Unsafe Housing Conditions Not on deborah e 03/09/2023 Family and Community Support Answer Reyes e Recorded Help with Day-to-Day Activities Not on file 03/09/2023 Lonely or Isolated Not on file 03/09/2023 Employment Answer Date Recorded Do you want help finding or keeping work or a sharifa b? Not on file 03/09/2023 Disabilities Answer Date Recorded Concentrating, Remembering, or Making Decisions Difficulty Not on file 03/09/2023 Doing Errands Independently Difficulty Not on fi le 03/09/2023 Education Answer Date Recorded Help with school or training? Not on file Preferred Language Not on file 03/09/2023 Sex and Gender Information Value Date Recorded Sex Assigned at Not on file Legal Sex Male 11:39 AM EST Gender Identity Not on file Sexual Orientation Not on file Plan of Treatment Health Maintenance Due Date Last Done Comments ANNUAL PHYSICAL 1960 HEPATITIS C SCREENING 1960 TDAP/TD VACCINES (1 - Tdap) 12/14/1978 COLOGUARD 12/14/2004 COLON CANCER SCREENING 5 YEAR SIGMOIDOSCOPY 12/14/2004 COLONOSCOPY 12/14/2004 COLORECTAL CANCER SCREENING 12/14/2004 CT COLONOGRAPHY 12/14/2004 FECAL OCCULT BLOOD TEST 12/14/2004 FIT Testing (1 year) 12/14/2004 Pneumococcal Vaccine 50+ (1 of 1 - PCV) 12/14/2009 ZOSTER VACCINE (1 of 2) 12/14/2009 AAA SCREEN ONCE 12/14/2024 INFLUENZA VACCINE 12/28/2024 COVID-19 Vaccine ( season) 2025 Care Teams Social Welfare Research Worker Relationship Specialty Start Date End Date Octavio Dia MD [address] [facility] [address] [facility] [facility] [id number] PCP - General 05/12/15
== END 2025-03-19 23:59 ==
LOC: LAB.DROPOF 03-21 08:16
PROVIDERS: PCP Internal Medicine; Visit Provider Internal Medicine
DX: I25.10 Atherosclerotic heart disease of native coronary artery without angina pectoris (principal); I10 Essential (primary) hypertension; E78.5 Hyperlipidemia, unspecified; K21.9 Gastro-esophageal reflux disease without esophagitis
CPT/HCPCS: 80053; 80061; 84484; 85025